=== PATIENT | female | born 2000 | race Two or more races ===

== ENCOUNTER 2019-08-12 00:18 | Emergency (ER) | payer SELFPAY ==
[~2019-08-12] VITALS: Ht 152.4 cm; Wt 112.5 kg
[2019-08-12] MEDS ORDERED: IBUPROFEN 400 MG TABLET ONE (01:02)
[2019-08-12] MEDS: IBUPROFEN 400 MG TABLET PO ONE (01:04)
--- NOTE | 2019-08-12 01:21 | NUR ---
BIBSELF FROM HOME W/ BOYFRIEND. TO ER BED 2. AAOX4. CRYING. NO RESP DISTRESS NOTED. BROUGHT IN BY WHEELCHAIR. C/O L FOOT PAIN S/P FALL WHILE CLIMBING STAIRS. PT DENIES HEAD TRAUMA. PAIN IS RATED 10/10, ROM AND SENSATION IN INTACT. MD AT BEDSIDE FOR EVAL. ORDERS RECEIVED, NOTED AND CARRIED OUT. XRAY WAS AT BEDSIDE.
[2019-08-12] MEDS ORDERED: diphenhydrAMINE HCL 25 MG CAPSULE ONE (01:44)
[2019-08-12] MEDS: diphenhydrAMINE HCL 25 MG CAPSULE PO ONE (01:49)
--- NOTE | 2019-08-12 01:49 | NUR ---
PT STATED THAT SHE HAVE A REACTIO TO THE IBUPROPHEN, NOTED A HIVE ON CHIN AREA. AWARE. ORDER FOR BENADRYL RECEIVED.
--- NOTE | 2019-08-12 02:09 | NUR ---
HIVE ON CHIN HAVE SUBSIDED. AWARE.
--- NOTE | 2019-08-12 02:10 | NUR ---
Patient discharged to home in stable condition. Written and verbal after care instructions given. Patient verbalizes understanding of instruction.
[2019-08-12 02:11] VITALS: BP 148/95
== END 2019-08-12 02:12 | disposition home or self-care (01) ==
LOC: ER 00:18
DX: S93.692A Other sprain of left foot, initial encounter (principal); Z88.0 Allergy status to penicillin; X50.1XXA Overexertion from prolonged static or awkward postures, initial encounter; Y93.39 Activity, other involving climbing, rappelling and jumping off; Y92.89 Other specified places as the place of occurrence of the external cause; Y99.8 Other external cause status
CPT/HCPCS: 73630; 99283; J7040; Q0163

== ENCOUNTER 2022-06-20 17:15 | Emergency (ER) | payer OTHER ==
[~2022-06-20] VITALS: Ht 152.4 cm; Wt 70.8 kg
[2022-06-20 17:21] VITALS: BP 130/77
--- NOTE | 2022-06-20 17:21 | NUR ---
BIBS C/O LEFT INDEX FINGER INJURY, "100LBS WEIGHT FELL ON IT", FEELS NUMB
[2022-06-20] MEDS ORDERED: IBUP-1955 PO (18:14)
--- NOTE | 2022-06-20 18:21 | NUR ---
Patient discharged to home in stable condition. Written and verbal after care instructions given. Patient verbalizes understanding of instruction.
== END 2022-06-20 18:21 | disposition home or self-care (01) ==
LOC: ER 17:23
DX: S60.122A Contusion of left index finger with damage to nail, initial encounter (principal); S67.22XA Crushing injury of left hand, initial encounter; Z88.0 Allergy status to penicillin; W20.8XXA Other cause of strike by thrown, projected or falling object, initial encounter; Y93.89 Activity, other specified; Y92.89 Other specified places as the place of occurrence of the external cause; Y99.8 Other external cause status
CPT/HCPCS: 73130-TC